=== PATIENT | female | born 1985 | race Caucasian/White ===

== ENCOUNTER 2016-06-19 07:10 | Emergency (ER) | payer OTHER ==
[~2016-06-19] VITALS: Ht 160 cm; Wt 59.1 kg
[2016-06-19 07:13] VITALS: PULSE 106; TEMP 98
[2016-06-19] MEDS ORDERED: XANAX 0.5MG0.5 MG PO (07:15)
[2016-06-19 07:46] LABS: BASO % 0.6 % (0.0-2.0); EOS # 0.1 (0.0-0.7); EOS % 2.1 % (0-4.0); GRAN # 2.1 (1.4-6.5); GRAN % 42.2 % (42.2-75.2); HEMATOCRIT 42.3 % (37.0-47.0); HEMOGLOBIN 13.8 g/dl (12.5-16.0); LYMPH # 2.3 (1.2-3.4); LYMPH % 46.7 % (20.0-51.0); MEAN CELL VOLUME 96 fl (80.0-100.0); MEAN CORPUSCULAR HEMOGLOBIN 31 pg (27.0-31.0); MEAN CORPUSCULAR HGB CONC 33 g/dl (33.0-37.0); MONO # 0.4 (0.1-0.6); MONO % 8.2 % (1.7-9.3); PLATELET COUNT 250 K/mm3 (130-400); RED BLOOD COUNT 4.43 M/mm3 (4.10-5.30); REDCELL DISTRIBUTION WIDTH-CV 12.5 % (11.5-14.5); WHITE BLOOD COUNT 4.9 K/mm3 (4.8-10.8)
[2016-06-19 08:00] LABS: ADJUSTED CALCIUM 9.1 mg/dL (8.4-10.2); ALANINE AMINOTRANSFERASE 24 U/L (9-52); ALBUMIN 4.4 gm/dL (3.5-5.0); ALKALINE PHOSPHATASE 97 U/L (50-136); ANION GAP 12 mmol/L (7-16); BILIRUBIN,TOTAL 0.8 mg/dL (0.0-1.0); BLOOD UREA NITROGEN 11 mg/dL (7-17); CALCIUM 9.4 mg/dL (8.4-10.2); CARBON DIOXIDE 24 mmol/L (22-30); CHLORIDE 106 mmol/L (98-107); CREATININE, serum 0.77 mg/dL (0.52-1.25); GLUCOSE 95 mg/dL (74-106); LIPASE 93 U/L (23-300); POTASSIUM 3.6 mmol/L (3.4-5.0); SODIUM 142 mmol/L (137-145); TOTAL PROTEIN 7.4 gm/dL (6.4-8.2)
[2016-06-19 08:02] LABS: C-REACTIVE PROTEIN < 0.5 mg/dL (0.0-0.9)
[2016-06-19 08:57] LABS: PH 6 (5-8); SQUAMOUS EPITHELIAL 0-2 /hpf; URINE APPEARANCE Clear; URINE BACTERIA Rare /hpf; URINE BILIRUBIN Negative (NEGATIVE); URINE BLOOD 3+ (NEGATIVE); URINE COLOR Straw; URINE GLUCOSE Negative (NEGATIVE); URINE KETONE Negative (NEGATIVE); URINE RBC >50 /hpf; URINE UROBILINOGEN Negative (NEGATIVE); URINE WBC 0-2 /hpf
[2016-06-19] MEDS ORDERED: ZOFRAN ODT4 MG PO (10:05)
[2016-06-19] MEDS ORDERED: PERCOCET 325 MG1 TA2 PO (10:05)
[2016-06-19 10:38] VITALS: BP 123/85
== END 2016-06-19 10:37 | disposition home or self-care (01) ==
LOC: COL.ER 07:10
PROVIDERS: Physician Assistant
DX: N13.2 Hydronephrosis with renal and ureteral calculous obstruction (principal)
CPT/HCPCS: J1170; J1885; J2405; J2550; J7030

== ENCOUNTER 2016-06-21 11:29 | Day surgery (SDC) | payer OTHER ==
[~2016-06-21] VITALS: Ht 160 cm; Wt 61.1 kg
[~2016-06-21 11:29] MED LIST: PERCOCET 325 MG1 TA2 PO; XANAX 0.5MG0.5 MG PO; ZOFRAN ODT4 MG PO
[2016-06-21 12:27] VITALS: BP 117/83; PULSE 87; TEMP 98.1
[2016-06-21 18:17] VITALS: BP 116/80; PULSE 74; TEMP 97.7
== END 2016-06-21 19:28 | disposition home or self-care (01) ==
LOC: SDCO 11:29 → JCC 11:53 → SDCO 16:30
DX: N20.1 Calculus of ureter (principal); F41.9 Anxiety disorder, unspecified; Z79.899 Other long term (current) drug therapy
CPT/HCPCS: OP; C1769; C2617; J0690; J1100; J1885; J2250; J2405; J2704; J3010; J7030; Q9967

== ENCOUNTER → 2016-09-01 | Outpatient (CLI) | payer OTHER | LOC: COL.RAD 13:50 | DX: R10.31 Right lower quadrant pain (principal) ==

== ENCOUNTER 2018-01-17 14:15 | Outpatient (RCR) | payer OTHER | END 2018-02-13 | disposition home or self-care (01) | LOC: WSST | DX: F80.9 Developmental disorder of speech and language, unspecified (principal) ==